=== PATIENT | male | born 1945 | race African-American/Black ===

== ENCOUNTER 2025-09-01 17:37 | Inpatient (IN) | payer OTHER, MEDICAID ==
[~2025-09-01] VITALS: Ht 177.8 cm; Wt 89.5 kg
--- NOTE | 2025-09-01 19:05 | ED.PDOC ---
History of Present Illness(SKN HPI Comments 80 year old male presents to the ED with a chief complaint of wound check. Patient states he went to see PCP, Dr. Marrero, today (09/01/25), was advised to come to ED for wound check, possible infection due to odor. states patient has been experiencing wound for the past 2 months as well as shortness of breath. Patient is not compliant with medication, BP upon ED arrival was 188/113. Denies chest pain, dizziness, numbness/tingling, fever, chills, nausea, vomiting, diarrhea, blurred vision, shortness of breath. No other symptoms or modifying factors present at this time. Chief Complaint: Puncture Wound Time Seen by MD: 18:35 History of Present Illness: Medications, Allergies Allergies: Coded Allergies: NO KNOWN ALLERGIES (Unverified , 09/01/25) Information Source: Patient, Spouse Mode of Arrival: Wheelchair Severity: Moderate Timing: Months Duration: Since onset Prehospital treatment: None Location: Leg Mechanism: Preceding Wound Object: None Condition of Object: None Wound Type: Other Tetanus: UTD History of: Diabetes Associated Signs and Symptoms: Pus Vital Signs Vital Signs Date Time Temp Pulse Resp B/P (MAP) Pulse Ox O2 Delivery O2 Flow Rate FiO2 09/01/25 17:40 83 20 188/113 98 Physical Exam PHYSICAL EXAM: General: Awake, alert and oriented. No acute distress. Skin: Skin in warm, dry and intact. Appropriate color for ethnicity. HEENT: The head is normocephalic and atraumatic. Conjunctivae are clear without exudates or hemorrhage. Sclera is non-icteric. EOM are intact. No signs of nystagmus. Eyelids are normal in appearance without swelling or lesions. Oral mucosa is pink and moist Neck: The neck is supple with normal range of motion. No JVD. Cardiac: Heart rate and rhythm are normal. No murmurs, gallops, or rubs are auscultated. Respiratory: No signs of respiratory distress. Lung sounds are clear in all lobes bilaterally without rales, rhonchi, or wheezes. Extremities: Lower extremity macerated was open, draining wounds, tender to palpation. Palpable right DP pulse. Neurological: The patient is awake, alert and oriented to person, place, and time with normal speech. Speech is clear. There is no facial asymmetry. Review of Systems: REVIEW OF SYSTEMS: General: No fever, no chills, or fatigue HEENT: No sore throat, no earache, no congestion, no neck pain. Cardiac: No chest pain. No palpitations. Lungs: + shortness of breath, no cough. GI: No nausea, no vomiting, no diarrhea, no constipation, no abdominal pain : No dysuria, frequency, or urgency. No hematuria. Musculoskeletal: No joint pain , no joint swelling, + extremity edema. Skin: No rash, no itching. Neuro: No headache, no dizziness, no weakness Past Medical History PAST MEDICAL HISTORY: DM, HTN Surgical History: CABG Family History Family History: Reviewed,noncontributory to illness, No family hx of Cancer, No family hx of DM, No family hx of Heart abiel, No family hx of HTN, No family hx ofKidney abiel, No family hx of Liver abiel, No family hx of Lung abiel, No family hx of Stroke Social History Smoker: Non-Smoker Alcohol: Denies ETOH Use Drugs: Denies Drug Use Lives In: Home Was a procedure done? Was a procedure done?: No X-Ray, Labs, Meds, VS Vital Signs Date Time Temp Pulse Resp B/P (MAP) Pulse Ox O2 Delivery O2 Flow Rate FiO2 09/01/25 17:40 83 20 188/113 98 Lab Test 09/01/25 19:20 Range/Units White Blood Count 5.7 4.4-10.8 10^3/uL Red Blood Count 4.60 4.5-5.90 10^6/uL Hemoglobin 14.7 13.5-17.5 g/dL Hematocrit 44.8 41.0-53.0 % Mean Corpuscular Volume 97.3 80.0-100.0 fL Mean Corpuscular Hemoglobin 31.9 28.0-32.0 pg Mean Corpuscular Hemoglobin Concent 32.8 32.0-36.0 g/dL Red Cell Distribution Width 18.7 H 11.8-14.3 % Platelet Count 197 140-450 10^3/uL Mean Platelet Volume 9.1 6.9-10.8 fL Neutrophils (%) (Auto) 73.1 37.0-80.0 % Lymphocytes (%) (Auto) 18.1 10.0-50.0 % Monocytes (%) (Auto) 7.7 0.0-12.0 % Eosinophils (%) (Auto) 0.0 0.0-7.0 % Basophils (%) (Auto) 1.1 0.0-2.0 % Neutrophils # (Auto) 4.2 1.6-8.6 10 ^3/uL Lymphocytes # (Auto) 1.0 0.4-5.4 10 ^3/uL Monocytes # (Auto) 0.4 0-1.3 10 ^3/uL Eosinophils # (Auto) 0 0-0.8 10 ^3/uL Basophils # (Auto) 0.1 0-0.2 10 ^3/uL Nucleated Red Blood Cells 0.1 % Sodium Level 146 H 136-145 mmol/L Potassium Level 3.4 L 3.5-5.1 mmol/L Chloride Level 103 98-107 mmol/L Carbon Dioxide Level 29 20-31 mmol/L Anion Gap 14 5-15 Blood Urea Nitrogen 28 H 9-23 mg/dL Creatinine 2.06 H 0.700-1.30 mg/dL Glomerular Filtration Rate Calc 32 >90 mL/min BUN/Creatinine Ratio 13.6 10.0-20.0 Serum Glucose 96 74-106 mg/dL Lactic Acid Level 1.4 0.4-2.0 mmol/L Calcium Level 8.9 8.7-10.4 mg/dL Troponin I High Sensitivity 46 </=54 ng/L B-Type Natriuretic Peptide 4935.18 0-100 pg/mL Time of 1ST Reevaluation: 19:05 Reevaluation 1ST: Unchanged Patient Education/Counseling: Diagnosis, Treatment, Need For Follow Up Family Education/Counseling: Diagnosis, Treatment, Need For Follow Up SEPSIS Sepsis Screen Date sepsis recognized/suspect: Sep 01, 2025 Time Sepsis recognized/suspect: 1740 Recent Procedure: No On Antibiotic Therapy: No Respiratory Rate >20: No Heart Rate >90: No Temp<36 C (96.8 F) or >38.3 C: No SBP <90 or MAP <65 mmHG: No New Acute Mental Status Change: No Is the patient on CPAP, BIPAP,: No Physician Orders Bilat Low Ext Art Duplex (09/01/25 18:54) Lower Extremity Non Joint Righ (09/01/25 18:54) Wound Culture W/ Gs (09/01/25 18:54) Blood Culture (09/01/25 18:54) Chest Xray 1 View (09/01/25 18:54) Sodium Chloride 0.9% (09/01/25 20:15) Ceftriaxone 1gm/50ml (Rocephin) (09/01/25 20:15) Vancomycin 1gm/250ml Kit (09/01/25 20:15) Vital Signs Date Time Temp Pulse Resp B/P (MAP) Pulse Ox O2 Delivery O2 Flow Rate FiO2 09/01/25 17:40 83 20 188/113 98 Laboratory Tests Test 09/01/25 19:20 Lactic Acid Level 1.4 mmol/L (0.4-2.0) White Blood Count 5.7 10^3/uL (4.4-10.8) Departure 1 Departure Time of Disposition: 20:21 Impression: Primary Impression: Cellulitis Additional Impressions: MARILY (acute kidney injury) Uncontrolled hypertension Disposition: ADMITTED INPATIENT Condition: Stable Comments MDM: 80-year-old male with right lower extremity cellulitis and MARILY Antibiotics and IV fluids initiated in the ED Patient admitted to hospitalist service for further treatment, evaluation and monitoring. Extensive evaluation was performed in attempt to identify or rule out: (See differential diagnosis section) The following tests were ordered, and results were reviewed by me and discussed with patient: (See diagnostic results section) The following test were independently interpreted by me: N/A I reviewed and agreed with the following test results read by other providers: N/A I reviewed the following notes from the pt's past medical encounters: N/A Additional information was gathered from interviewing the following independent historians: Patient's family member at bedside Discussion of management or test interpretation with external physician/other qualified health body care manager: N/A Addressed [ ]one or more chronic illnesses with severe exacerbation, progression, or side effects of treatment: Diabetes mellitus, CHF Decision regarding hospitalization or escalation of hospital level of care: Risk and benefits of admission for further treatment of patient's condition was considered. Due to patient's current clinical condition, high risk of decline and poor outcome if discharged and need for further inpatient management and monitoring, patient will be admitted to the hospital. Critical Care Note Critical Care Time?: No Stability Stability form required: No Heart Score Heart Score: Heart Score Response (Comments) Value History N/A 0 EKG N/A 0 Age N/A 0 Risk Factors N/A 0 Troponin N/A 0 Total 0 I personally scribed for DEMETRIUS DYER MD ([email or web address]) on 09/01/25 at 19:05. Electronically submitted by Debbie Shoemaker ([email or web address]). DEMETRIUS DYER MD Sep 01, 2025 19:05
[2025-09-01 19:44] LABS: Hematocrit 44.8 % (41.0-53.0); Hemoglobin 14.7 g/dL (13.5-17.5); Mean Corpuscular Hemoglobin 31.9 pg (28.0-32.0); Mean Corpuscular Volume 97.3 fL (80.0-100.0); Nucleated Red Blood Cells % 0.1 %
[2025-09-01 19:56] LABS: Chloride 103 mmol/L (98-107)
[2025-09-01 19:57] LABS: Anion Gap 14 (5-15); Calcium 8.9 mg/dL (8.7-10.4); Carbon Dioxide 29 mmol/L (20-31)
--- NOTE | 2025-09-01 19:59 | DVH ---
CHEST RADIOGRAPH Indication: sob Technique: Single frontal view of the chest was obtained Comparison: None FINDINGS: Lines and Tubes: None Lungs: No focal consolidation. Pleura: No effusion. No pneumothorax. Cardiomediastinal contours: Unremarkable Bones: No acute osseous abnormality. IMPRESSION: 1. No acute cardiopulmonary disease.
[2025-09-01 20:02] LABS: BUN/Creatinine Ratio 13.6 (10.0-20.0); Glucose 96 mg/dL (74-106)
[2025-09-01 20:03] LABS: Blood Urea Nitrogen 28 mg/dL (9-23); Potassium 3.4 mmol/L (3.5-5.1); Sodium 146 mmol/L (136-145)
[2025-09-01] MEDS ORDERED: SODIUM CHLORIDE 0.9% 1,000 ML IV ONE (20:15)
--- NOTE | 2025-09-01 20:17 | DVH ---
EXAM: CT LOWER EXTREMITY NON JOINT RIGH INDICATION: RLE cellulitis wheeping edema TECHNIQUE: Axial images of right lower extremity have been obtained along with coronal and sagittal r eformatted images. All CT scans at this facility use dose modulation, iterative reconstruction, and/o r weight based dosing when appropriate to reduce radiation dose to as low as reasonably achievable. COMPARISON: None FINDINGS: BONES: No CT evidence of an acute fracture or aggressive osseous lesion. no abnormal periosteal react ion osseous erosion or areas of sclerosis MUSCLES: No abnormal attenuation. JOINT SPACES: No joint effusion. TENDONS/LIGAMENTS: Intact. OTHER: Extensive surrounding skin thickening with subcutaneous adipose tissue edema IMPRESSION: 1. No CT evidence of an acute fracture or aggressive osseous lesion. 2. No abnormal periosteal reaction, osseous erosion or areas of sclerosis. 3. Extensive surrounding skin thickening with subcutaneous adipose tissue edema likely compatible wit h cellulitis/fasciitis. 4. No drainable fluid collection
--- NOTE | 2025-09-01 21:01 | DVH ---
EXAM: US BILAT LOW EXT ART DUPLEX INDICATION: Cellulitis TECHNIQUE: Grayscale and color Doppler sonographic imaging evaluation of the right and left lower ext remity arterial system was performed COMPARISON: None available at the time of dictation. FINDINGS: RIGHT LOWER EXTREMITY ARTERIES: Common femoral artery: 13.1 cm/s, triphasic Deep femoral artery: 69 cm/s, triphasic Proximal femoral artery: 91 cm/s, triphasic Mid femoral artery: 84 cm/s, triphasic Distal femoral artery: 86 cm/s, triphasic Popliteal artery: 64 cm/s, biphasic Posterior tibial artery: Nonvisualized Dorsalis pedis artery: 16 cm/s, biphasic LEFT LOWER EXTREMITY ARTERIES: Common femoral artery: 65 cm/s, monophasic Deep femoral artery: 76 cm/s, monophasic Proximal femoral artery: 21 cm/s, monophasic Mid femoral artery: 70 cm/s, monophasic Distal femoral artery: 20 cm/s, monophasic Popliteal artery: 17 cm/s, monophasic Posterior tibial artery: Not well visualized Dorsalis pedis artery: Not well visualized REFERENCE VALUES: Normal velocity ranges (in cm/sec) are as follows: UPHOLSTERY HANDLER 95-140, SFA 75-105, popliteal 54-84, tibial 41-81 cm/sec. Stenosis categories: 1.5-2.0 x normal velocity = 30-49%, 2.0-4.0 x normal velocity = 50-75%, >4.0 x normal velocity = >75%. IMPRESSION: 1. No sonographic evidence of a lower extremity arterial occlusion. Velocities as above. 2. Plaque seen through bilateral lower extremities. 3. Decreased left common femoral artery velocity. 4. Diffusely decreased monophasic waveform of the left lower extremity suggestive of proximal stenosi s.
[2025-09-01] MEDS: VANCOMYCIN 1GM/250ML KIT 250 ML IV ONE (22:51)
[2025-09-02] VITALS (7 sets, daily range): BP systolic 105–176; BP diastolic 62–94; PULSE 66–84; RESP 16–20; TEMP 97.9–98.7; O2SAT 94–98
[2025-09-02] MEDS ORDERED: DEXTROSE (50%) 50ML SYRG IV PRN (02:00)
[2025-09-02] MEDS ORDERED: VANCOMYCIN PER PHARMACY 0 MG IV SCH (02:00)
--- NOTE | 2025-09-02 02:23 | DVHHPRES ---
History of Present Illness Resident Creating Document: RAYMOND CABRERA History of Present Illness Patient is a 80-year-old male with past medical history of type 2 diabetes mellitus and hypertension, presented to [facility] ED for evaluation of a wound, per recommendation from his PCP, Dr. Marrero, who was seen earlier today. The PCP was concerned about possible infection due to odor from the wound. Patient has been experiencing swelling and pain in the right lower extremity for the past 2 months, which has worsened over the last few days, now with drainage and bleeding from the wound site. Patient is reportedly noncompliant with prescribed medications. Upon arrival to the ED, blood pressure was elevated at 188/113 mmHg. Initial labs shows sodium 146, potassium 3.4, BUN 28 and creatinine 2.06. Lower extremity CT shows extensive surrounding skin thickening with subcutaneous adipose tissue edema likely compatible with cellulitis/fasciitis. The patient was started on IV antibiotics. Patient is admitted for further evaluation and management. Cardiovascular: HTN Endocrine: Diabetes Past Surgical History: CABG Smoke: Quit ALCOHOL: none Drugs: None Lives: with Family Review of Systems Review of Systems Eyes: No Pain, No Vision change, No Conjunctivae inflammation, No Eyelid inflammation, No Other, No Redness ENT: No Ear pain, No Ear discharge, No Nose pain, No Nose discharge, No Nose congestion, No Mouth pain, No Mouth swelling, No Throat pain, No Throat swelling, No Other Cardiovascular: No Chest Pain, No Palpitations, No Orthopnea, No Paroxysmal No Dyspnea, No Edema, No Lt Headedness, No Other Respiratory: No Cough, No Dry, Shortness of breath, No SOB with exertion, No Wheezing, No Hemoptysis, No Pleuritic Pain, No Sputum, No Other Gastrointestinal: No Nausea, No Vomiting, No Abdominal Pain, No Diarrhea, No Constipation, No Melena, No Hematochezia, No Other Genitourinary: No Dysuria, No Frequency, No Incontinence, No Hematuria, No Retention, No Other Musculoskeletal: No other, No neck pain, No shoulder pain, No arm pain, No back pain, No hand pain, No leg pain, No foot pain Skin: No Rash, No Lesions, No Jaundice, No Bruising, No Other Allergies: Coded Allergies: NO KNOWN ALLERGIES (Unverified , 09/01/25) Medications Current Medications Medications Dose Ordered Sig/Reza Route Start Time Stop Time Status Last Admin Dose Admin Sodium Chloride 10 ml Q8HR IV 09/02/25 06:00 Vancomycin HCl 0 ml @ 0 mls/hr UD IV 09/02/25 02:00 UNV Warfarin Sodium RX PROTOCOL PER PHARMACY PO 09/02/25 02:00 UNV Ceftriaxone Sodium 50 ml @ 100 mls/hr DAILY@09 IV 09/02/25 09:00 Diagnostic Test (Pha) 1 strip ACHS 09/02/25 07:00 Insulin Human Regular ACHS SC 09/02/25 07:00 Dextrose 50 ml UD PRN IV 09/02/25 02:00 Carvedilol 6.25 mg Q12HR PO 09/02/25 10:00 Nifedipine 60 mg DAILY PO 09/03/25 10:00 Exam Vital Signs Vital Signs Date Time Temp Pulse Resp B/P (MAP) Pulse Ox O2 Delivery O2 Flow Rate FiO2 09/01/25 23:50 97.8 75 18 171/94 (119) 95 97.8 Exam General Appearance: Cooperative. Well developed. Well nourished. NAD Head Exam: Normal inspection Neck Exam: Normal inspection. Non-tender. Normal alignment Pulmonary/Respiratory: Chest non-tender. Clear bilateral breath sounds, no crackles, no wheezing. Cardiovascular/Chest: Regular rate and rhythm. No murmurs. No JVD. Peripheral Pulses: 2+ Radial (R). 2+ Radial (L). 2+ Pedal (R). 2+ Pedal (L) Abdominal Exam: Abdominal distension. Normal bowel sounds. Soft. normal abdomen, no visible veins, Nontender. No hepatospenomegaly. No masses Ankle Exam: Negative ankle edema Lower extremities: Lower extremity macerated was open, draining wounds, tender to palpation. Palpable right DP pulse. Neuro/Mental Status: A&O x4. Coherent. Thoughts/Psych: Normal thought pattern. Appropriate mood and affect. Good judgement and insight Skin Exam: Normal inspection. Normal color. Warm. Dry Labs/Xrays Labs Test 09/01/25 19:20 Range/Units White Blood Count 5.7 4.4-10.8 10^3/uL Red Blood Count 4.60 4.5-5.90 10^6/uL Hemoglobin 14.7 13.5-17.5 g/dL Hematocrit 44.8 41.0-53.0 % Mean Corpuscular Volume 97.3 80.0-100.0 fL Mean Corpuscular Hemoglobin 31.9 28.0-32.0 pg Mean Corpuscular Hemoglobin Concent 32.8 32.0-36.0 g/dL Red Cell Distribution Width 18.7 H 11.8-14.3 % Platelet Count 197 140-450 10^3/uL Mean Platelet Volume 9.1 6.9-10.8 fL Neutrophils (%) (Auto) 73.1 37.0-80.0 % Lymphocytes (%) (Auto) 18.1 10.0-50.0 % Monocytes (%) (Auto) 7.7 0.0-12.0 % Eosinophils (%) (Auto) 0.0 0.0-7.0 % Basophils (%) (Auto) 1.1 0.0-2.0 % Neutrophils # (Auto) 4.2 1.6-8.6 10 ^3/uL Lymphocytes # (Auto) 1.0 0.4-5.4 10 ^3/uL Monocytes # (Auto) 0.4 0-1.3 10 ^3/uL Eosinophils # (Auto) 0 0-0.8 10 ^3/uL Basophils # (Auto) 0.1 0-0.2 10 ^3/uL Nucleated Red Blood Cells 0.1 % Sodium Level 146 H 136-145 mmol/L Potassium Level 3.4 L 3.5-5.1 mmol/L Chloride Level 103 98-107 mmol/L Carbon Dioxide Level 29 20-31 mmol/L Anion Gap 14 5-15 Blood Urea Nitrogen 28 H 9-23 mg/dL Creatinine 2.06 H 0.700-1.30 mg/dL Glomerular Filtration Rate Calc 32 >90 mL/min BUN/Creatinine Ratio 13.6 10.0-20.0 Serum Glucose 96 74-106 mg/dL Lactic Acid Level 1.4 0.4-2.0 mmol/L Calcium Level 8.9 8.7-10.4 mg/dL Troponin I High Sensitivity 46 </=54 ng/L B-Type Natriuretic Peptide 4935.18 0-100 pg/mL SEPSIS Sepsis Screen Date sepsis recognized/suspect: Sep 01, 2025 Time Sepsis recognized/suspect: 1740 Recent Procedure: No On Antibiotic Therapy: No Respiratory Rate >20: No Heart Rate >90: No Temp<36 C (96.8 F) or >38.3 C: No SBP <90 or MAP <65 mmHG: No New Acute Mental Status Change: No Is the patient on CPAP, BIPAP,: No Physician Orders Bilat Low Ext Art Duplex (09/01/25 18:54) Lower Extremity Non Joint Righ (09/01/25 18:54) Wound Culture W/ Gs (09/01/25 18:54) Blood Culture (09/01/25 18:54) Chest Xray 1 View (09/01/25 18:54) Sod Chl 0.45% (Sodium Chloride 0.45% Via (09/01/25 21:30) Admit (09/02/25 01:48) Allergies (09/02/25 01:48) Code Status (09/02/25 01:48) Sodium Chloride Lock (Saline Lock Ns) (09/02/25 06:00) Complete Blood Count (09/02/25 04:00) Comprehensive Metabolic Panel (09/02/25 04:00) Cardiac Diet-2gna,Lofat,Lochol (09/02/25 Breakfast) Echo 2d Mode Cardiac Dop (09/02/25 01:48) Condition: Serious (09/02/25 01:48) Stat Ekg For Chest Pain (09/02/25 01:48) Notify Md Of Changes From Base (09/02/25 01:48) Extractor Puller For 24 Hours (09/02/25 01:48) Emergency Dysrhythmia Protocol (09/02/25 01:48) Rhythm Strips Once Every Shift (09/02/25 01:48) * Wound Consult (09/02/25 ) Urinalysis (09/02/25 01:48) Drug Screen (09/02/25 01:48) Lactic Acid W/ Reflex Order (09/02/25 01:48) Vancomycin Per Pharmacy (09/02/25 02:00) Erythrocyte Sedimentation Rate (09/02/25 01:48) C-Reactive Protein (09/02/25 01:48) Warfarin Per Rx Protocol (Coumadin Per R (09/02/25 02:00) Hepatic Panel (09/02/25 01:48) Kidney (09/02/25 01:48) Urine Sodium (09/02/25 01:48) Urine Creatinine (09/02/25 01:48) Osmolality Urine (09/02/25 01:48) Urine Protein/Creatinine Ratio (09/02/25 ) Creatine Kinase (09/02/25 01:48) Ceftriaxone 1gm/50ml (Rocephin) (09/02/25 09:00) Consult Vascular/Endovascular (09/02/25 01:48) Glucose Blood (Accu-Chek Comfort Curve T (09/02/25 07:00) Insulin R (Human) (Insulin R) (09/02/25 07:00) Dextrose 50% Syringe (09/02/25 02:00) Carvedilol Tablet (Coreg Tablet) (09/02/25 10:00) Nifedipine Er (Procardia Xl (Time-Releas (09/02/25 02:30) Nifedipine Er (Procardia Xl (Time-Releas (09/03/25 10:00) Carvedilol Tablet (Coreg Tablet) (09/02/25 02:30) Vital Signs Date Time Temp Pulse Resp B/P (MAP) Pulse Ox O2 Delivery O2 Flow Rate FiO2 09/01/25 23:50 97.8 75 18 171/94 (119) 95 97.8 Laboratory Tests Test 09/01/25 19:20 Lactic Acid Level 1.4 mmol/L (0.4-2.0) White Blood Count 5.7 10^3/uL (4.4-10.8) Medications Medications Dose Ordered Sig/Reza Route Start Time Stop Time Status Last Admin Dose Admin Ceftriaxone Sodium 50 ml @ 100 mls/hr ONCE ONCE IV 09/01/25 20:15 09/01/25 21:00 DC 09/01/25 22:52 100 MLS/HR Vancomycin HCl 250 ml @ 250 mls/hr ONCE ONCE IV 09/01/25 20:15 09/01/25 21:14 DC 09/01/25 22:51 250 MLS/HR Assessment/Plan Assessment/Plan Right lower extremity cellulitis Lower extremity CT: Extensive surrounding skin thickening with subcutaneous adipose tissue edema likely compatible with cellulitis/fasciitis. Duplex scan lower extremity artery: Diffusely decreased monophasic waveform of the left lower extremity suggestive of proximal stenosis. Plaque seen through bilateral lower extremities. Decreased left common femoral artery velocity. 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 Gill Plan discussed with: Patient, Spouse My Orders Orders - RAYMOND CABRERA RESIDENT Procedure Category Date Status Time Admit ADMIT 09/02/25 Transmitted 01:48 Allergies ERLIN 09/02/25 In Process 01:48 Code Status CODE 09/02/25 Transmitted 01:48 Sodium Chloride Lock PHA 09/02/25 In Process (Saline Lock Ns) 06:00 Complete Blood Count LAB 09/02/25 Logged 04:00 Comprehensive LAB 09/02/25 Logged Metabolic Panel 04:00 Cardiac DIET 09/02/25 Transmitted Diet-2gna,Lofat,Lochol Breakfast Echo 2d Mode Cardiac US 09/02/25 Logged DOP 01:48 Condition: Serious ERLIN 09/02/25 In Process 01:48 Stat Ekg For Chest [facility] 09/02/25 In Process Pain 01:48 Notify Md Of Changes [facility] 09/02/25 In Process From Base 01:48 Extractor Puller For [facility] 09/02/25 In Process 24 Hours 01:48 Emergency Dysrhythmia [facility] 09/02/25 In Process Protocol 01:48 Rhythm Strips Once [facility] 09/02/25 In Process Every Shift 01:48 * Wound Consult CONS 09/02/25 Transmitted Urinalysis LAB 09/02/25 Logged 01:48 Drug Screen LAB 09/02/25 Logged 01:48 Lactic Acid W/ Reflex LAB 09/02/25 Logged Order 01:48 Vancomycin Per PHA 09/02/25 Logged Pharmacy 02:00 Erythrocyte LAB 09/02/25 Logged Sedimentation Rate 01:48 C-Reactive Protein LAB 09/02/25 Logged 01:48 Warfarin Per Rx [facility] 09/02/25 Pending Protocol (Coumadin 02:00 Hepatic Panel LAB 09/02/25 Logged 01:48 Kidney US 09/02/25 Logged 01:48 Urine Sodium LAB 09/02/25 Logged 01:48 Urine Creatinine LAB 09/02/25 Logged 01:48 Osmolality Urine LAB 09/02/25 Logged 01:48 Urine LAB 09/02/25 Logged Protein/Creatinine Creatine Kinase LAB 09/02/25 Logged 01:48 Ceftriaxone 1gm/50ml PHA 09/02/25 In Process (Rocephin) 09:00 Consult CONS 09/02/25 Transmitted Vascular/Endovascular 01:48 Glucose Blood PHA 09/02/25 In Process (Accu-Chek Comfort 07:00 Insulin R (Human) PHA 09/02/25 In Process (Insulin R) 07:00 Dextrose 50% Syringe PHA 09/02/25 In Process 02:00 Carvedilol Tablet PHA 09/02/25 In Process (Coreg Tablet) 10:00 Nifedipine Er PHA 09/02/25 In Process (Procardia Xl 02:30 Nifedipine Er PHA 09/03/25 In Process (Procardia Xl 10:00 Carvedilol Tablet PHA 09/02/25 In Process (Coreg Tablet) 02:30 Date of Service: Sep 02, 2025 Billing Provider: DOMINICK GILL MD Common Visit Codes: 60412-[id number] INP/OBS CARE (HIGH) Secondary Visit Codes: [id number] CARE PLAN 30 MINUTES RAYMOND CABRERA RESIDENT Sep 02, 2025 02:23 DOMINICK GILL MD Sep 02, 2025 08:43
[2025-09-02 04:09] LABS: Alanine Aminotransferase 17.0 U/L (7-40); Albumin 4.2 g/dL (3.2-4.8); Alkaline Phosphatase 101.0 U/L (46-116); Creatine Kinase IFCC 130.0 U/L (46-171); Total Protein 8.1 g/dL (5.7-8.2)
[2025-09-02 04:10] LABS: Bilirubin, Direct 1.1 mg/dL (<0.3); Bilirubin, Total 1.7 mg/dL (0.2-1.0)
[2025-09-02] MEDS: POTASSIUM EFFERVESENT TAB 25 MEQ PO ONE (04:22)
[2025-09-02] MEDS: CARVEDILOL 3.125 MG TAB PO ONE (04:24)
[2025-09-02 05:04] LABS: Hematocrit 45.2 % (41.0-53.0); Hemoglobin 15.0 g/dL (13.5-17.5); Mean Corpuscular Hemoglobin 32.3 pg (28.0-32.0); Mean Corpuscular Volume 97.5 fL (80.0-100.0); Nucleated Red Blood Cells % 0.1 %
[2025-09-02 05:18] LABS: Alanine Aminotransferase 19 U/L (7-40); Albumin 4.1 g/dL (3.2-4.8); Alkaline Phosphatase 107 U/L (46-116); Anion Gap 14 (5-15); BUN/Creatinine Ratio 15.8 (10.0-20.0); Calcium 9.0 mg/dL (8.7-10.4); Carbon Dioxide 28 mmol/L (20-31); Chloride 102 mmol/L (98-107); Potassium 3.6 mmol/L (3.5-5.1); Sodium 144 mmol/L (136-145); Total Protein 7.9 g/dL (5.7-8.2)
[2025-09-02 05:26] LABS: Bilirubin, Total 1.7 mg/dL (0.2-1.0); Blood Urea Nitrogen 30 mg/dL (9-23); Glucose 140 mg/dL (74-106)
[2025-09-02] MEDS: InsuLIN REG 1unit/0.01ml Soln (100units/ml) SC SCH (06:44)
[2025-09-02] MEDS: SODIUM CHLOR 0.9% PF (SALINE LOCK) 10ML VIAL/SYR IV SCH (06:44)
[2025-09-02] MEDS: VANCOMYCIN 1GM/250ML KIT 250 ML IV ONE (06:50)
[2025-09-02] MEDS: SOD CHL 0.45% 1,000 ML IV ONE (06:52)
[2025-09-02] MEDS: ACCU-CHEK COMFORT CURVE STRIP VI SCH (07:00)
[2025-09-02] MEDS: FUROSEMIDE 40 MG/4 ML VIAL IV ONE (07:50)
--- NOTE | 2025-09-02 08:11 | DVH ---
INDICATION: MARILY. TECHNIQUE: Multiple real-time sonographic images of the kidneys and bladder were obtained. COMPARISON: None FINDINGS: The right kidney measures 8.8 cm in length, which is normal in size. There is normal echoge nicity of the right kidney. No hydronephrosis. There is a 1.2 cm echogenic mass in the right kidney. There is no shadowing. Increased echogenicity of the renal cortex. The left kidney measures 8.7 cm in length, which is normal in size. There is normal echogenicity of t he left kidney. No hydronephrosis. Increased echogenicity of the renal cortex. No large intraluminal masses are seen in the bladder. Prior to voiding the bladder volume measures vo lume 180.2 cc. IMPRESSION: 1. Bilateral medical renal disease. 2. 1.2 cm echogenic mass in the right kidney. This could represent a nonobstructing stone versus ang iomyolipoma.
[2025-09-02] MEDS ORDERED: WARF4TAB70 PO (08:17)
[2025-09-02] MEDS ORDERED: CARV6.2551 PO (08:17)
[2025-09-02] MEDS ORDERED: METF-372 PO (08:17)
[2025-09-02 09:37] LABS: Urine Protein, UAD Negative (Negative)
[2025-09-02] MEDS ORDERED: VANCOMYCIN 1GM/250ML KIT 250 ML IV SCH (10:10)
[2025-09-02] MEDS: CARVEDILOL 3.125 MG TAB PO SCH (10:55)
[2025-09-02 10:56] LABS: INR 2.09 (0.9-1.15); Partial Thromboplastin Time 35.8 SEC (24.5-34.5); Prothrombin Time 20.6 sec (9.3-11.8)
--- NOTE | 2025-09-02 12:49 | DVHPNRES ---
Progress Note Date Seen: Sep 02, 2025 Resident Creating Document: PENELOPE PAULINO RESIDENT Has the PT tested + for MRSA If YES, has PT been informed?: No Medical Necessity Reason Pt with a Central, PICC or Fol: No Subjective Review of Systems Timur Briseno is a 80-year-old male, with past medical history of CAD, type 2 diabetes mellitus and hypertension, presented to the ED with chief complain of 2 months of bilateral leg edema, warmth, erythema and pain, the pain is 6/10, throbbing irradiated diffusely in the legs up to the knees. On further questioning the patient reports that his takes care of his daily medications and he has not being compliant. The edema and erythema worsen, specially in the right leg, this prompted his visit to His PCP, Dr. Nobles, who recommends to visit the ED due to of foul odor and multiples ulcers around both legs. In the ED, initial work up showed: sodiym 146, potassium 3.4, BUN [address] of Lower extremity showed extensive surrounding skin thickening with subcutaneous adipose tissue edema likely compatible with cellulitis/fascitis. The patient was started on IV antibiotics. Patient was admitted for further evaluation and management. Past Surgical History: CABG (patient on warfarin due to [facility].) Smoke: quit >5 years ago. No alcohol or drugs. Lives with . Today, the patient was evaluated and examined at the bedside, patient reports feeling leg pain 4/10, more in the right leg. VS, labs and chart was reviewed. The patient is receiving Vancomycin 1gr IV and ceftriaxone 1gr IV. Bilateral lower extremity doppler showed: No sonographic evidence of a lower extremity arterial occlusion. Velocities as above. Plaque seen through bilateral lower extremities. Decreased left common femoral artery velocity. Diffusely decreased monophasic waveform of the left lower extremity suggestive of proximal stenosis. Consult with vascular surgery was placed. US abdomen showed: 1.2 cm echogenic mass in the right kidney. This could represent a nonobstructing stone versus angiomyolipoma. Today, I spoke with the patient's and update in regards he status. We will continue monitoring this patient. Review of Systems Eyes: No Pain, No Vision change, No Conjunctivae inflammation, No Eyelid inflammation, No Other, No Redness ENT: No Ear pain, No Ear discharge, No Nose pain, No Nose discharge, No Nose congestion, No Mouth pain, No Mouth swelling, No Throat pain, No Throat swelling, No Other Cardiovascular: No Chest Pain, No Palpitations, No Orthopnea, No Paroxysmal No Dyspnea, No Edema, No Lt Headedness, No Other Respiratory: No Cough, No Dry, No SOB with exertion, No Wheezing, No Hemoptysis, No Pleuritic Pain, No Sputum, No Other Gastrointestinal: No Nausea, No Vomiting, No Abdominal Pain, No Diarrhea, No Constipation, No Melena, No Hematochezia, No Other Genitourinary: No Dysuria, No Frequency, No Incontinence, No Hematuria, No Retention, No Other Musculoskeletal: bilateral leg pain, redness and swelling. More in the right. Skin: No R the patient reports Coded Allergies: No known allergies. Objective vital signs Vital Sign Date Time Temp Pulse Resp B/P (MAP) Pulse Ox O2 Delivery O2 Flow Rate FiO2 09/02/25 10:55 76 128/77 09/02/25 07:53 98.5 20 96 98.5 09/02/25 07:53 Room Air* 0 21 medications Current Medications Medications Dose Ordered Sig/Reza Route Start Time Stop Time Status Last Admin Dose Admin Sodium Chloride 10 ml Q8HR IV 09/02/25 06:00 09/02/25 06:44 10 ML Vancomycin HCl 0 ml @ 0 mls/hr UD IV 09/02/25 02:00 Warfarin Sodium RX PROTOCOL PER PHARMACY PO 09/02/25 02:00 Ceftriaxone Sodium 50 ml @ 100 mls/hr DAILY@09 IV 09/02/25 09:00 09/02/25 08:25 100 MLS/HR Diagnostic Test (Pha) 1 strip ACHS 09/02/25 07:00 09/02/25 10:49 1 STRIP Insulin Human Regular ACHS SC 09/02/25 07:00 09/02/25 10:55 3 UNITS Dextrose 50 ml UD PRN IV 09/02/25 02:00 Carvedilol 6.25 mg Q12HR PO 09/02/25 10:00 09/02/25 10:55 6.25 MG Nifedipine 60 mg DAILY PO 09/03/25 10:00 Vancomycin HCl 250 ml @ 250 mls/hr DAILY IV 09/02/25 10:10 UNV Examination General Appearance: Alert, oriented x3. Cooperative. Head Exam: Normal inspection Neck Exam: Normal inspection. Non-tender. Normal alignment Pulmonary/Respiratory: Chest non-tender. Clear bilateral breath sounds, no crackles, no wheezing. Cardiovascular/Chest: Regular rate and rhythm. No murmurs. No JVD. Peripheral Pulses: Pedal pulses are decreased in bilateral legs 2/5. Capillary refill 3 sec. Abdominal Exam: Abdomen is protuberant. Normal bowel sounds. Soft. Non tender. Lower extremities: Cold to touch. Right and left lower extremity skin has erythema and multiple open ulcers draining yellowish fluid. foul smell. Normal ROM. Tender to palpation. Right leg is more tender and warm compared with the left leg. Neuro/Mental Status: A&O x3. laboratory and microbiology Laboratory Tests 09/02/25 02:34 Test 09/02/25 02:34 Range/Units Serum Glucose 140 H 74-106 mg/dL Problem List/Assessment/Plan Problem List/Assessment/Plan #Acute Right lower extremity cellulitis #Severe peripheral artery disease. Lower extremity CT: Extensive surrounding skin thickening with subcutaneous adipose tissue edema likely compatible with cellulitis/fascitis. Duplex scan lower extremity artery: Diffusely decreased monophasic waveform of the left lower extremity suggestive of proximal stenosis. Plaque seen through bilateral lower extremities. Decreased left common femoral artery velocity. IV antibiotics: Vancomycin 1gr and ceftriaxone 1 gr. daily Blood culture, urine culture Wound culture Wound consult Vascular surgery consult Hypertensive urgency Monitor BP Echocardiogram reading is pending. 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 was called and report the status of the patient. Code Status: Full code PCP: Dr. Morales. Cardiology Dr. Marrero in [place] Case discussed with Dr. Gill Plan discussed with: Patient, Spouse My Orders My Orders Orders - PENELOPE PAULINO RESIDENT Procedure Category Date Status Time Lipid Panel LAB 09/02/25 In Process 07:02 Complete Blood Count LAB 09/03/25 Verified 04:00 Comprehensive LAB 09/03/25 Verified Metabolic Panel 04:00 Date of Service: Sep 02, 2025 Billing Provider: DOMINICK GILL MD Common Visit Codes: [id number] INP/OBS CARE(HIGH) PENELOPE PAULINO RESIDENT Sep 02, 2025 12:49
[2025-09-02 13:16] LABS: Protein, Urine 30.1 mg/dL (1-14)
[2025-09-02 13:30] LABS: Triglycerides 91 mg/dL (< 150)
[2025-09-02 13:31] LABS: Cholesterol 92 mg/dL (< 200)
[2025-09-02 13:48] LABS: HDL Cholesterol 37 mg/dL (40-59)
[2025-09-02 13:49] LABS: Amphetamine Screen, Urine Neg (NEGATIVE); Barbiturate Scree,Urine Neg (NEGATIVE); Benzodiazephine Screen, Urine Neg (NEGATIVE); Cannabinoid Screen, Urine Neg (NEGATIVE); Cocaine Screen, Urine Neg (NEGATIVE); Opiate Scree,Urine Neg (NEGATIVE); Phencyclidine Screen, Urine Neg (NEGATIVE)
[2025-09-02] MEDS: HYDROcodone-ACET 5/325MG TAB PO PRN (15:48)
[2025-09-02] MEDS: WARFARIN SODIUM 1 MG TAB PO ONE (17:00)
[2025-09-02] MEDS ORDERED: AMIO200T33 PO (19:24)
[2025-09-02] MEDS ORDERED: FURO40TA4 PO (19:24)
[2025-09-03] VITALS (8 sets, daily range): BP systolic 103–139; BP diastolic 58–80; PULSE 55–72; RESP 16–18; TEMP 97.8–98.6; O2SAT 91–96
[2025-09-03 07:43] LABS: Hematocrit 41.8 % (41.0-53.0); Hemoglobin 14.0 g/dL (13.5-17.5); Mean Corpuscular Hemoglobin 32.6 pg (28.0-32.0); Mean Corpuscular Volume 97.5 fL (80.0-100.0); Nucleated Red Blood Cells % 0.1 %
[2025-09-03 08:00] LABS: Alanine Aminotransferase 15 U/L (7-40); Albumin 3.7 g/dL (3.2-4.8); Anion Gap 13 (5-15); BUN/Creatinine Ratio 13.1 (10.0-20.0); Carbon Dioxide 28 mmol/L (20-31); Chloride 102 mmol/L (98-107); Potassium 3.9 mmol/L (3.5-5.1); Sodium 143 mmol/L (136-145); Total Protein 7.4 g/dL (5.7-8.2)
[2025-09-03 08:03] LABS: INR 2.07 (0.9-1.15); Partial Thromboplastin Time 36.8 SEC (24.5-34.5); Prothrombin Time 20.4 sec (9.3-11.8)
[2025-09-03 08:08] LABS: Bilirubin, Total 1.3 mg/dL (0.2-1.0); Blood Urea Nitrogen 31 mg/dL (9-23); Calcium 8.5 mg/dL (8.7-10.4); Glucose 107 mg/dL (74-106)
[2025-09-03 08:12] LABS: Alkaline Phosphatase 83 U/L (46-116)
--- NOTE | 2025-09-03 14:14 | DVHPNRES ---
Progress Note Date Seen: Sep 03, 2025 Resident Creating Document: PENELOPE PAULINO RESIDENT Has the PT tested + for MRSA If YES, has PT been informed?: No Medical Necessity Reason Pt with a Central, PICC or Fol: No Subjective Review of Systems Timur Briseno is a 80-year-old male, with past medical history of CAD, type 2 diabetes mellitus and hypertension, presented to the ED with chief complain of 2 months of bilateral leg edema, warmth, erythema and pain, the pain is 6/10, throbbing irradiated diffusely in the legs up to the knees. On further questioning the patient reports that his takes care of his daily medications and he has not being compliant. The edema and erythema worsen, specially in the right leg, this prompted his visit to His PCP, Dr. Nobles, who recommends to visit the ED due to of foul odor and multiples ulcers around both legs. In the ED, initial work up showed: sodiym 146, potassium 3.4, BUN [address] of Lower extremity showed extensive surrounding skin thickening with subcutaneous adipose tissue edema likely compatible with cellulitis/fascitis. The patient was started on IV antibiotics. Patient was admitted for further evaluation and management. Past Surgical History: CABG (patient on warfarin due to [facility].) Smoke: quit >5 years ago. No alcohol or drugs. Lives with . Admission course: On 09/02/25, the patient was evaluated and examined at the bedside, patient reports feeling leg pain 4/10, more in the right leg. VS, labs and chart was reviewed. The patient is receiving Vancomycin 1gr IV and ceftriaxone 1gr IV. Bilateral lower extremity doppler showed: No sonographic evidence of a lower extremity arterial occlusion. Velocities as above. Plaque seen through bilateral lower extremities. Decreased left common femoral artery velocity. Diffusely decreased monophasic waveform of the left lower extremity suggestive of proximal stenosis. Consult with vascular surgery was placed. US abdomen showed: 1.2 cm echogenic mass in the right kidney. This could represent a nonobstructing stone versus angiomyolipoma. Today, I spoke with the patient's and update in regards he status. We will continue monitoring this patient. On 09/03/25, the the patient was re-evaluated and examined at the bedside, patient reports feeling leg pain 3/10, more in the right leg. VS, labs and chart was reviewed. The patient continues receiving Vancomycin 1gr IV and ceftriaxone 1gr IV. The patient has no new complaints. VS are stable. Creatinine has increase, small bolus of NS (250ml #1) was ordered to avoid fluid overload. Vascular surgery consult is pending. We will continue following up the progress of this patient. Review of Systems Eyes: No Pain, No Vision change, No Conjunctivae inflammation, No Eyelid inflammation, No Other, No Redness ENT: No Ear pain, No Ear discharge, No Nose pain, No Nose discharge, No Nose congestion, No Mouth pain, No Mouth swelling, No Throat pain, No Throat swelling, No Other Cardiovascular: No Chest Pain, No Palpitations, No Orthopnea, No Paroxysmal No Dyspnea, No Edema, No Lt Headedness, No Other Respiratory: No Cough, No Dry, No SOB with exertion, No Wheezing, No Hemoptysis, No Pleuritic Pain, No Sputum, No Other Gastrointestinal: No Nausea, No Vomiting, No Abdominal Pain, No Diarrhea, No Constipation, No Melena, No Hematochezia, No Other Genitourinary: No Dysuria, No Frequency, No Incontinence, No Hematuria, No Retention, No Other Musculoskeletal: bilateral leg pain, redness and swelling. More in the right. Skin: Right leg the patient reports pain has improved with pain medication. Coded Allergies: No known allergies. Objective vital signs Vital Sign Date Time Temp Pulse Resp B/P (MAP) Pulse Ox O2 Delivery O2 Flow Rate FiO2 09/03/25 09:51 139/80 09/03/25 09:50 79 09/03/25 08:52 97.9 16 92 97.9 09/03/25 07:30 Room Air* 0 21 Total Intake and Output 09/02/25 09/02/25 09/03/25 15:00 23:00 07:00 Intake Total 250 ml 440 ml 455 ml Output Total 275 ml Balance 250 ml 165 ml 455 ml medications Current Medications Medications Dose Ordered Sig/Reza Route Start Time Stop Time Status Last Admin Dose Admin Sodium Chloride 10 ml Q8HR IV 09/02/25 06:00 09/03/25 06:20 10 ML Vancomycin HCl 0 ml @ 0 mls/hr UD IV 09/02/25 02:00 Ceftriaxone Sodium 50 ml @ 100 mls/hr DAILY@09 IV 09/02/25 09:00 09/03/25 09:50 100 MLS/HR Diagnostic Test (Pha) 1 strip ACHS 09/02/25 07:00 09/03/25 10:34 1 STRIP Insulin Human Regular ACHS SC 09/02/25 07:00 09/03/25 10:39 3 UNITS Dextrose 50 ml UD PRN IV 09/02/25 02:00 Carvedilol 6.25 mg Q12HR PO 09/02/25 10:00 09/03/25 09:50 6.25 MG Nifedipine 60 mg DAILY PO 09/03/25 10:00 09/03/25 09:51 60 MG Vancomycin HCl 250 ml @ 250 mls/hr DAILY IV 09/02/25 10:10 UNV Acetaminophen/ Hydrocodone Bitart 1 tab Q8HPRN PRN PO 09/02/25 15:00 09/02/25 15:48 1 TAB Warfarin Sodium RX PROTOCOL PER PHARMACY PO 09/03/25 10:00 Atorvastatin Calcium 40 mg HS PO 09/03/25 22:00 Aspirin 81 mg DAILY PO 09/03/25 10:00 09/03/25 10:39 81 MG Examination General Appearance: Alert, oriented x3. Cooperative. Head Exam: Normal inspection Neck Exam: Normal inspection. Non-tender. Normal alignment Pulmonary/Respiratory: Chest non-tender. Clear bilateral breath sounds, no crackles, no wheezing. Cardiovascular/Chest: Regular rate and rhythm. No murmurs. No JVD. Peripheral Pulses: Pedal pulses are decreased in bilateral legs 2/5. Capillary refill 3 sec. Abdominal Exam: Abdomen is protuberant. Normal bowel sounds. Soft. Non tender. Lower extremities: Cold to touch. Right and left lower extremity skin has erythema and multiple open ulcers draining yellowish fluid. foul smell. Normal ROM. Tender to palpation. Right leg is more tender and warm compared with the left leg. Neuro/Mental Status: A&O x3. laboratory and microbiology Laboratory Tests 09/03/25 07:18 Test 09/03/25 07:18 Range/Units Serum Glucose 107 H 74-106 mg/dL Microbiology Date/Time Source Procedure Growth Status 09/02/25 18:00 Leg Gram Stain - Final Resulted 09/02/25 18:00 Leg Wound Culture - Preliminary Resulted 09/01/25 19:20 Blood Blood Culture - Preliminary NO GROWTH AFTER 24 HOURS OF INCUBATION. Resulted Problem List/Assessment/Plan Problem List/Assessment/Plan #Acute Right lower extremity cellulitis #Severe peripheral artery disease. Lower extremity CT: Extensive surrounding skin thickening with subcutaneous adipose tissue edema likely compatible with cellulitis/fascitis. Duplex scan lower extremity artery: Diffusely decreased monophasic waveform of the left lower extremity suggestive of proximal stenosis. Plaque seen through bilateral lower extremities. Decreased left common femoral artery velocity. IV antibiotics: Vancomycin 1gr and ceftriaxone 1 gr. daily Blood culture, urine culture Wound culture Wound consult Vascular surgery consult #Hypertensive urgency Monitor BP Echocardiogram reading is pending. 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 DVT prophylaxis: patient on warfarin Diet: Cardiac diet Goals of care discussed with the patient for more than 35 minutes. was called and report the status of the patient. Code Status: Full code PCP: Dr. Morales. Cardiology Dr. Marrero in [place] Case discussed with Dr. Gill Plan discussed with: Patient My Orders My Orders Orders - PENELOPE PAULINO RESIDENT Procedure Category Date Status Time * Dietary Consult CONS 09/02/25 Transmitted 16:25 Warfarin Per Rx PHA 09/03/25 In Process Protocol (Coumadin 10:00 Atorvastatin (Lipitor) PHA 09/03/25 In Process 22:00 Aspirin Tablet PHA 09/03/25 In Process 10:00 Dietary NOTICE 09/03/25 Transmitted Recommendations 10:20 Complete Blood Count LAB 09/04/25 Verified 04:00 Basic Metabolic Panel LAB 09/04/25 Verified 04:00 Dietary Evaluation Review Comments: 1) Consider CCHO 75gm + cardiac diet 2) Juevn 1 pk BID 3) Monitor PO intake, lab values, weight trend, and I/O Expected Outcomes/Goals: Wound to improve Fu 3-5 days Date of Service: Sep 03, 2025 Billing Provider: SRINATH MARIN MD Common Visit Codes: [id number] INP/OBS CARE(HIGH) PENELOPE PAULINO RESIDENT Sep 03, 2025 14:14 SRINATH MARIN MD Sep 03, 2025 22:06
[2025-09-03] MEDS: WARFARIN SODIUM 1 MG TAB PO ONE (17:14)
[2025-09-03] MEDS: SODIUM CHLORIDE 0.9% 250 ML IV ONE (18:34)
[2025-09-03] MEDS: ATORVASTATIN 20 MG TAB PO SCH (21:31)
[2025-09-04] VITALS (8 sets, daily range): BP systolic 104–117; BP diastolic 57–77; PULSE 58–67; RESP 16–20; TEMP 97.6–98.8; O2SAT 92–96
[2025-09-04 06:48] LABS: Hematocrit 40.0 % (41.0-53.0); Hemoglobin 13.4 g/dL (13.5-17.5); Mean Corpuscular Hemoglobin 32.6 pg (28.0-32.0); Mean Corpuscular Volume 97.2 fL (80.0-100.0); Nucleated Red Blood Cells % 0.1 %
[2025-09-04 06:59] LABS: INR 1.94 (0.9-1.15); Partial Thromboplastin Time 38.2 SEC (24.5-34.5); Prothrombin Time 19.3 sec (9.3-11.8)
[2025-09-04 07:02] LABS: Anion Gap 12 (5-15); Carbon Dioxide 28 mmol/L (20-31); Chloride 102 mmol/L (98-107); Potassium 4.0 mmol/L (3.5-5.1); Sodium 142 mmol/L (136-145)
[2025-09-04 07:08] LABS: BUN/Creatinine Ratio 13.5 (10.0-20.0)
[2025-09-04 07:10] LABS: Blood Urea Nitrogen 37 mg/dL (9-23); Calcium 8.6 mg/dL (8.7-10.4); Glucose 110 mg/dL (74-106)
--- NOTE | 2025-09-04 11:04 | DVHPNRES ---
Progress Note Date Seen: Sep 04, 2025 Resident Creating Document: CONRAD POPE RESIDENT Has the PT tested + for MRSA If YES, has PT been informed?: No Medical Necessity Reason Pt with a Central, PICC or Fol: No Subjective Review of Systems Timur Briseno is a 80-year-old male, with past medical history of CAD, type 2 diabetes mellitus and hypertension, presented to the ED with chief complain of 2 months of bilateral leg edema, warmth, erythema and pain, the pain is 6/10, throbbing irradiated diffusely in the legs up to the knees. On further questioning the patient reports that his takes care of his daily medications and he has not being compliant. The edema and erythema worsen, specially in the right leg, this prompted his visit to His PCP, Dr. Nobles, who recommends to visit the ED due to of foul odor and multiples ulcers around both legs. The patient was seen and examined on the bedside. He is alert oriented x3. Mentioned feeling better and no active complaint this time. Duplex Scan of the lower extremity demonstrated diffusely decreased monophasic waveform of the left lower extremity suggestive of proximal stenosis. Objective vital signs Vital Sign Date Time Temp Pulse Resp B/P (MAP) Pulse Ox O2 Delivery O2 Flow Rate FiO2 09/04/25 09:51 116/57 09/04/25 09:51 63 09/04/25 08:00 18 Room Air* 0 21 09/04/25 05:00 98.0 95 98.0 Total Intake and Output 09/03/25 09/03/25 09/04/25 15:00 23:00 07:00 Intake Total 50 ml 800 ml 850 ml Output Total 500 ml 400 ml Balance 50 ml 300 ml 450 ml medications Current Medications Medications Dose Ordered Sig/Reza Route Start Time Stop Time Status Last Admin Dose Admin Sodium Chloride 10 ml Q8HR IV 09/02/25 06:00 09/04/25 06:57 10 ML Vancomycin HCl 0 ml @ 0 mls/hr UD IV 09/02/25 02:00 Ceftriaxone Sodium 50 ml @ 100 mls/hr DAILY@09 IV 09/02/25 09:00 09/04/25 09:48 100 MLS/HR Diagnostic Test (Pha) 1 strip ACHS 09/02/25 07:00 09/04/25 06:57 1 STRIP Insulin Human Regular ACHS SC 09/02/25 07:00 09/03/25 21:38 2 UNITS Dextrose 50 ml UD PRN IV 09/02/25 02:00 Carvedilol 6.25 mg Q12HR PO 09/02/25 10:00 09/04/25 09:51 6.25 MG Nifedipine 60 mg DAILY PO 09/03/25 10:00 09/04/25 09:51 60 MG Vancomycin HCl 250 ml @ 250 mls/hr DAILY IV 09/02/25 10:10 UNV Acetaminophen/ Hydrocodone Bitart 1 tab Q8HPRN PRN PO 09/02/25 15:00 09/02/25 15:48 1 TAB Warfarin Sodium RX PROTOCOL PER PHARMACY PO 09/03/25 10:00 Atorvastatin Calcium 40 mg HS PO 09/03/25 22:00 09/03/25 21:31 40 MG Aspirin 81 mg DAILY PO 09/03/25 10:00 09/04/25 09:49 81 MG Examination Examination General Appearance: Alert, oriented x3. Cooperative. Head Exam: Normal inspection Neck Exam: Normal inspection. Non-tender. Normal alignment Pulmonary/Respiratory: Chest non-tender. Clear bilateral breath sounds, no crackles, no wheezing. Cardiovascular/Chest: Regular rate and rhythm. No murmurs. No JVD. Peripheral Pulses: Pedal pulses are decreased in bilateral legs 2/5. Capillary refill 3 sec. Abdominal Exam: Abdomen is protuberant. Normal bowel sounds. Soft. Non tender. Lower extremities: Cold to touch. Right and left lower extremity skin has erythema and multiple open ulcers draining yellowish fluid. foul smell. Normal ROM. Tender to palpation. Right leg is more tender and warm compared with the left leg. Neuro/Mental Status: Normal laboratory and microbiology Laboratory Tests 09/04/25 05:53 Test 09/04/25 05:53 Range/Units Serum Glucose 110 H 74-106 mg/dL Microbiology Date/Time Source Procedure Growth Status 09/02/25 18:00 Leg Gram Stain - Final Resulted 09/02/25 18:00 Leg Wound Culture - Preliminary Resulted 09/01/25 19:20 Blood Blood Culture - Preliminary NO GROWTH AFTER 48 HOURS OF INCUBATION. Resulted Labs and/or images reviewed: Labs reviewed by me, Image(s) reviewed by me Problem List/Assessment/Plan Problem List/Assessment/Plan Assessment and plan: #Acute Right lower extremity cellulitis #Severe peripheral artery disease. - Lower extremity CT: Extensive surrounding skin thickening with subcutaneous adipose tissue edema likely compatible with cellulitis/fascitis. - Duplex scan lower extremity artery: Diffusely decreased monophasic waveform of the left lower extremity suggestive of proximal stenosis. Plaque seen through bilateral lower extremities. Decreased left common femoral artery velocity. - IV antibiotics: Vancomycin 1gr and ceftriaxone 1 gr. daily - Blood Culture showed no growth in 24 hours of incubation, preliminary wound culture demonstrated gm positive/negative rods, cocci in cluster - Pending vascular surgery consult - Consulted health social work professor to arrange home health for wound care - Continue aspirin 81 mg p.o. 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 Code Status: Full code Case discussed with Dr. Marin Plan discussed with: Patient, Other (RN) Dietary Evaluation Review Comments: 1) Consider CCHO 75gm + cardiac diet 2) Juevn 1 pk BID 3) Monitor PO intake, lab values, weight trend, and I/O Expected Outcomes/Goals: Wound to improve Fu 3-5 days Date of Service: Sep 04, 2025 Billing Provider: SRINATH MARIN MD Common Visit Codes: [id number] INP/OBS CARE(HIGH) CONRAD POPE RESIDENT Sep 04, 2025 11:04 SRINATH MARIN MD Sep 04, 2025 17:39
[2025-09-04 16:18] LABS: Chloride 104 mmol/L (98-107); Potassium 3.8 mmol/L (3.5-5.1); Sodium 141 mmol/L (136-145)
[2025-09-04 16:19] LABS: Anion Gap 10 (5-15); Carbon Dioxide 27 mmol/L (20-31)
[2025-09-04 16:21] LABS: Calcium 8.2 mg/dL (8.7-10.4)
[2025-09-04 16:24] LABS: BUN/Creatinine Ratio 12.6 (10.0-20.0); Blood Urea Nitrogen 36 mg/dL (9-23); Glucose 160 mg/dL (74-106)
[2025-09-04] MEDS: WARFARIN SODIUM 2 MG TAB PO ONE (17:25)
[2025-09-04] MEDS ORDERED: FUROSEMIDE 40 MG/4 ML VIAL IV ONE (17:45)
[2025-09-04] MEDS: FUROSEMIDE 40 MG/4 ML VIAL IV ONE (21:26)
[2025-09-05] MEDS: guaiFENesin-DM 100/10mg/5ml SYR PO PRN (01:58)
[2025-09-05 04:52] VITALS: BP 118/80; PULSE 59; RESP 18; TEMP 97.6; O2SAT 95
[2025-09-05 06:18] LABS: Hematocrit 39.2 % (41.0-53.0); Hemoglobin 13.3 g/dL (13.5-17.5); Mean Corpuscular Hemoglobin 32.9 pg (28.0-32.0); Mean Corpuscular Volume 96.8 fL (80.0-100.0); Nucleated Red Blood Cells % 0.1 %
[2025-09-05 06:28] LABS: INR 2.08 (0.9-1.15); Partial Thromboplastin Time 37.8 SEC (24.5-34.5); Prothrombin Time 20.5 sec (9.3-11.8)
[2025-09-05 07:00] VITALS: BP 125/87; PULSE 61; RESP 22; TEMP 97.4; O2SAT 86
[2025-09-05 09:28] LABS: Chloride 102 mmol/L (98-107); Potassium 4.1 mmol/L (3.5-5.1); Sodium 141 mmol/L (136-145)
[2025-09-05 09:29] LABS: Anion Gap 15 (5-15); Carbon Dioxide 24 mmol/L (20-31)
[2025-09-05 09:34] LABS: BUN/Creatinine Ratio 13.9 (10.0-20.0)
[2025-09-05 09:41] LABS: Blood Urea Nitrogen 43 mg/dL (9-23); Calcium 8.6 mg/dL (8.7-10.4); Glucose 129 mg/dL (74-106)
[2025-09-05 12:38] VITALS: BP 128/60; PULSE 65; RESP 23; TEMP 98.3; O2SAT 89
[2025-09-05] MEDS ORDERED: CEPH500C PO (13:55)
--- NOTE | 2025-09-05 14:07 | DVHSR ---
APPROVED REPORT EXAM: Two-dimensional and M-mode echocardiogram with Doppler and color Doppler. Blood Pressure: 176/94 mmHg INDICATION Chest Pain Surgery/Intervention Valve Replacement: Type: AV RISK FACTORS Height: 5'10", Weight: 185 DIMENSIONS LVDd5.1 (3.8-5.7cm)LA (2D)4.4 (1.9-4.0cm)Aortic Root (2.0-3.7cm) LVDs4.2 (2.5-4.0cm)LA (MM) (1.9-4.0cm)Aortic Cusp Exc1.7 (1.5-2.0cm) EF (%) 34.0 (55-70%)Rt. Atrium6.9 (1.9-4.0cm)Asc. Aorta3.7 cm IVSd1.2 (0.7-1.1cm)RV (D)5.7 (1.8-2.4cm) PWd1.4 (0.7-1.1cm) Mitral Valve MitralMitral Stenosis E wave0.89m/sMV Mean GR.mmHg A wave0.74m/sMV Peak GR.mmHg E/A ratio1.22D MVAcm2 DECEL [id number] 1/2 Timems Aortic Valve Aortic ValveAortic Stenosis V10.75m/Trina Mean GR.17mmHg V23.01m/Trina Peak GR.37mmHg LVOT Diameter2.4 (1.8-2.4cm)Doppler AVA1.13cm2 AI P 1/2 [id number] Pulmonic Valve V20.68m/s Tricuspid Valve TR Velocity2.70m/s [id number] Conclusion lvef 30% RV enlargeemtn and dysfunction s/p AVR, mean gradient of 16 mmhg across valve severe tricuspid regurg mild mitral regurg biatrial enlargement moderate pulmonic regurg
--- NOTE | 2025-09-05 14:47 | DVHDSRES ---
Discharge Summary Date of Admission Resident Creating Document: PENELOPE PAULINO RESIDENT Sep 02, 2025 at 01:48 Date of Discharge: Sep 05, 2025 Admitting Diagnosis Right leg cellulitis Hypertensive urgency MARILY on CKD Stage 3b Diabetes with hyperglycemia Wounds: Multiple bilateral lower leg wounds. Labs/Diagnostic Data: Laboratory Results Test 09/05/25 12:09 09/05/25 04:51 09/03/25 07:18 09/02/25 10:14 POC Glucose 150 mg/dl (70-106) White Blood Count 5.3 10^3/uL (4.4-10.8) Red Blood Count 4.05 10^6/uL (4.5-5.90) Hemoglobin 13.3 g/dL (13.5-17.5) Hematocrit 39.2 % (41.0-53.0) Mean Corpuscular Volume 96.8 fL (80.0-100.0) Mean Corpuscular Hemoglobin 32.9 pg (28.0-32.0) Mean Corpuscular Hemoglobin Concent 34.0 g/dL (32.0-36.0) Red Cell Distribution Width 17.9 % (11.8-14.3) Platelet Count 180 10^3/uL (140-450) Mean Platelet Volume 9.0 fL (6.9-10.8) Neutrophils (%) (Auto) 73.9 % (37.0-80.0) Lymphocytes (%) (Auto) 15.6 % (10.0-50.0) Monocytes (%) (Auto) 8.8 % (0.0-12.0) Eosinophils (%) (Auto) 1.2 % (0.0-7.0) Basophils (%) (Auto) 0.5 % (0.0-2.0) Neutrophils # (Auto) 3.9 10 ^3/uL (1.6-8.6) Lymphocytes # (Auto) 0.8 10 ^3/uL (0.4-5.4) Monocytes # (Auto) 0.5 10 ^3/uL (0-1.3) Eosinophils # (Auto) 0.1 10 ^3/uL (0-0.8) Basophils # (Auto) 0 10 ^3/uL (0-0.2) Nucleated Red Blood Cells 0.1 % Prothrombin Time 20.5 sec (9.3-11.8) Prothrombin Time INR 2.08 (0.9-1.15) Activated Partial Thromboplast Time 37.8 SEC (24.5-34.5) Sodium Level 141 mmol/L (136-145) Potassium Level 4.1 mmol/L (3.5-5.1) Chloride Level 102 mmol/L (98-107) Carbon Dioxide Level 24 mmol/L (20-31) Anion Gap 15 (5-15) Blood Urea Nitrogen 43 mg/dL (9-23) Creatinine 3.10 mg/dL (0.700-1.30) Glomerular Filtration Rate Calc 20 mL/min (>90) BUN/Creatinine Ratio 13.9 (10.0-20.0) Serum Glucose 129 mg/dL (74-106) Calcium Level 8.6 mg/dL (8.7-10.4) Random Vancomycin Level 9.6 ug/mL (5-10) Total Bilirubin 1.3 mg/dL (0.2-1.0) Aspartate Amino Transferase (AST) 21 U/L (13-40) Alanine Aminotransferase (ALT) 15 U/L (7-40) Alkaline Phosphatase 83 U/L (46-116) Total Protein 7.4 g/dL (5.7-8.2) Albumin 3.7 g/dL (3.2-4.8) Hemoglobin A1c 7.1 % A1C (<5.7) Triglycerides Level 91 mg/dL (< 150) Cholesterol Level 92 mg/dL (< 200) LDL Cholesterol 40 mg/dL (< 100) HDL Cholesterol 37 mg/dL (40-59) Test 09/02/25 08:25 09/02/25 02:34 09/01/25 19:20 Urine Color Light-yellow (Yellow) Urine Clarity Clear (Clear) Urine pH 7.0 (5.0-9.0) Urine Specific [place] 1.007 (1.001-1.035) Urine Protein Negative (Negative) Urine Ketones Negative (Negative) Urine Blood Negative /uL (Negative) Urine Nitrite Negative (Negative) Urine Bilirubin Negative (Negative) Urine Urobilinogen 2 mg/dL (Negative) Urine Leukocyte Esterase Negative /uL (Negative) Urine RBC 1 /hpf (0 - 3) Urine Microscopic WBC < 1 /HPF (0-3) Urine Squamous Epithelial Cells None seen /hpf (<5) Urine Bacteria None seen /hpf (None Seen) Urine Osmolality 285 mOsm/kg Urine Creatinine 18.84 mg/dL (30.0-125.0) Urine Protein/Creatinine Ratio 1.60 Urine Sodium 103 mmol/L (40-220) Urine Glucose Normal mg/dL (Normal) Urine Total Protein 30.1 mg/dL (1-14) Urine Opiates Screen Neg (NEGATIVE) Urine Fentanyl Screen Neg (NEGATIVE) Urine Barbiturates Screen Neg (NEGATIVE) Urine Phencyclidine Screen Neg (NEGATIVE) Urine Amphetamines Screen Neg (NEGATIVE) Urine Benzodiazepines Screen Neg (NEGATIVE) Urine Cocaine Screen Neg (NEGATIVE) Urine Cannabinoids Screen Neg (NEGATIVE) Erythrocyte Sedimentation Rate 6 mm/hr (0-20) Lactic Acid Level 1.7 mmol/L (0.4-2.0) Direct Bilirubin 1.1 mg/dL (<0.3) Creatine Kinase 130 U/L (46-171) C-Reactive Protein High Sensitivity 2.78 mg/dL (<1.0) Troponin I High Sensitivity 46 ng/L (</=54) B-Type Natriuretic Peptide 4935.18 pg/mL (0-100) Other Laboratory Tests 09/05/25 04:51 Brief Hx & Hospital Course: Timur Briseno is a 80-year-old male, with past medical history of CAD, type 2 diabetes mellitus and hypertension, presented to the ED with chief complain of 2 months of bilateral leg edema, warmth, erythema and pain, the pain is 6/10, throbbing irradiated diffusely in the legs up to the knees. On further questioning the patient reports that his takes care of his daily medications and he has not being compliant. The edema and erythema worsen, specially in the right leg, this prompted his visit to His PCP, Dr. Nobles, who recommends to visit the ED due to of foul odor and multiples ulcers around both legs. In the ED, initial work up showed: sodiym 146, potassium 3.4, BUN [address] of Lower extremity showed extensive surrounding skin thickening with subcutaneous adipose tissue edema likely compatible with cellulitis/fascitis. The patient was started on IV antibiotics. Patient was admitted for further evaluation and management. Past Surgical History: CABG (patient on warfarin due to [facility].) Smoke: quit >5 years ago. No alcohol or drugs. Lives with . Admission course: On 09/02/25, the patient was evaluated and examined at the bedside, patient reports feeling leg pain 4/10, more in the right leg. VS, labs and chart was reviewed. The patient is receiving Vancomycin 1gr IV and ceftriaxone 1gr IV. Bilateral lower extremity doppler showed: No sonographic evidence of a lower extremity arterial occlusion. Velocities as above. Plaque seen through bilateral lower extremities. Decreased left common femoral artery velocity. Diffusely decreased monophasic waveform of the left lower extremity suggestive of proximal stenosis. Consult with vascular surgery was placed. US abdomen showed: 1.2 cm echogenic mass in the right kidney. This could represent a nonobstructing stone versus angiomyolipoma. Today, I spoke with the patient's and update in regards he status. We will continue monitoring this patient. On 09/03/25, the the patient was re-evaluated and examined at the bedside, patient reports feeling leg pain 3/10, more in the right leg. VS, labs and chart was reviewed. The patient continues receiving Vancomycin 1gr IV and ceftriaxone 1gr IV. The patient has no new complaints. VS are stable. Creatinine has increase, small bolus of NS (250ml #1) was ordered to avoid fluid overload. Vascular surgery consult is pending. We will continue following up the progress of this patient. On 09/04/25: patient was seen and examined on the bedside. He is alert oriented x3. Mentioned feeling better and no active complaint this time. Duplex Scan of the lower extremity demonstrated diffusely decreased monophasic waveform of the left lower extremity suggestive of proximal stenosis. On 09/05/25, the patient was examined at bedside, VS, labs and chart was reviewed. The patient reports feeling better today. No fever, pain is well control 0/10 today. The patient will be discharge home with Ketflex 500mg po QID for 7 days. The patient will f/u with Dr. Marrero as an out patient. Review of Systems Eyes: No Pain, No Vision change, No Conjunctivae inflammation, No Eyelid inflammation, No Other, No Redness ENT: No Ear pain, No Ear discharge, No Nose pain, No Nose discharge, No Nose congestion, No Mouth pain, No Mouth swelling, No Throat pain, No Throat swelling, No Other Cardiovascular: No Chest Pain, No Palpitations, No Orthopnea, No Paroxysmal No Dyspnea, No Edema, No Lt Headedness, No Other Respiratory: No Cough, No Dry, No SOB with exertion, No Wheezing, No Hemoptysis, No Pleuritic Pain, No Sputum, No Other Gastrointestinal: No Nausea, No Vomiting, No Abdominal Pain, No Diarrhea, No Constipation, No Melena, No Hematochezia, No Other Genitourinary: No Dysuria, No Frequency, No Incontinence, No Hematuria, No Retention, No Other Musculoskeletal: bilateral leg pain, redness and swelling. More in the right. Skin: Right leg the patient reports pain has improved to 0/10 today with pain medication. Coded Allergies: No known allergies. Physical Exam General Appearance: Alert, oriented x3. Cooperative. Non in distress Head Exam: Normal inspection Neck Exam: Normal inspection. Non-tender. Normal alignment Pulmonary/Respiratory: Chest non-tender. Clear bilateral breath sounds, no crackles, no wheezing. Cardiovascular/Chest: Regular rate and rhythm. No murmurs. No JVD. Peripheral Pulses: Pedal pulses are decreased in bilateral legs 2/5. Capillary refill 3 sec. Abdominal Exam: Abdomen is protuberant. Normal bowel sounds. Soft. Non tender. Lower extremities: ROM preserved, sensitivity and strength preserved. pedal pulses disminish 3/5. Capillary refill <2 secs Right and left lower extremity skin has erythema and multiple open ulcers that are improving with wound care. Tender to palpation. Right leg is more tender and warm compared with the left leg. Neuro/Mental Status: A&O x3. Consults/Reason for consult Vascular surgery: peripheral artery disease. Wound consult, for wound care Operations or Procedures PROCEDURE(s): CXR1 - CHEST XRAY 1 VIEW REASON: sob ORDER NUMBER(s): [id number], ACCESSION NUMBER(s): [id number] CHEST RADIOGRAPH Indication: sob Technique: Single frontal view of the chest was obtained Comparison: None FINDINGS: Lines and Tubes: None Lungs: No focal consolidation. Pleura: No effusion. No pneumothorax. Cardiomediastinal contours: Unremarkable Bones: No acute osseous abnormality. IMPRESSION: 1. No acute cardiopulmonary disease. EDURE(s): BLEAD - BiLat Low Ext Art Duplex REASON: RLE cellulitis and wheeping edema ORDER NUMBER(s): [id number], ACCESSION NUMBER(s): [id number] EXAM: US BILAT LOW EXT ART DUPLEX INDICATION: Cellulitis TECHNIQUE: Grayscale and color Doppler sonographic imaging evaluation of the right and left lower extremity arterial system was performed COMPARISON: None available at the time of dictation. FINDINGS: RIGHT LOWER EXTREMITY ARTERIES: Common femoral artery: 13.1 cm/s, triphasic Deep femoral artery: 69 cm/s, triphasic Proximal femoral artery: 91 cm/s, triphasic Mid femoral artery: 84 cm/s, triphasic Distal femoral artery: 86 cm/s, triphasic Popliteal artery: 64 cm/s, biphasic Posterior tibial artery: Nonvisualized Dorsalis pedis artery: 16 cm/s, biphasic LEFT LOWER EXTREMITY ARTERIES: Common femoral artery: 65 cm/s, monophasic Deep femoral artery: 76 cm/s, monophasic Proximal femoral artery: 21 cm/s, monophasic Mid femoral artery: 70 cm/s, monophasic Distal femoral artery: 20 cm/s, monophasic Popliteal artery: 17 cm/s, monophasic Posterior tibial artery: Not well visualized Dorsalis pedis artery: Not well visualized REFERENCE VALUES: Normal velocity ranges (in cm/sec) are as follows: METEOROLOGIST LIAISON 95-140, SFA 75-105, popliteal 54-84, tibial 41-81 cm/sec. Stenosis categories: 1.5-2.0 x normal velocity = 30-49%, 2.0-4.0 x normal velocity = 50- 75%, >4.0 x normal velocity = >75%. IMPRESSION: 1. No sonographic evidence of a lower extremity arterial occlusion. Velocities as above. 2. Plaque seen through bilateral lower extremities. 3. Decreased left common femoral artery velocity. 4. Diffusely decreased monophasic waveform of the left lower extremity suggestive of proximal stenosis. EDURE(s): RLEX - LOWER EXTREMITY NON JOINT RIGH REASON: RLE cellulitis & wheeping edema ORDER NUMBER(s): [id number], ACCESSION NUMBER(s): [id number] EXAM: CT LOWER EXTREMITY NON JOINT RIGH INDICATION: RLE cellulitis wheeping edema TECHNIQUE: Axial images of right lower extremity have been obtained along with coronal and sagittal reformatted images. All CT scans at this facility use dose modulation, iterative reconstruction, and/or weight based dosing when appropriate to reduce radiation dose to as low as reasonably achievable. COMPARISON: None FINDINGS: BONES: No CT evidence of an acute fracture or aggressive osseous lesion. no abnormal periosteal reaction osseous erosion or areas of sclerosis MUSCLES: No abnormal attenuation. JOINT SPACES: No joint effusion. TENDONS/LIGAMENTS: Intact. OTHER: Extensive surrounding skin thickening with subcutaneous adipose tissue edema IMPRESSION: 1. No CT evidence of an acute fracture or aggressive osseous lesion. 2. No abnormal periosteal reaction, osseous erosion or areas of sclerosis. 3. Extensive surrounding skin thickening with subcutaneous adipose tissue edema likely compatible with cellulitis/fasciitis. 4. No drainable fluid collection EDURE(s): KIDUS - KIDNEY REASON: MARILY ORDER NUMBER(s): [id number], ACCESSION NUMBER(s): [id number] INDICATION: MARILY. TECHNIQUE: Multiple real-time sonographic images of the kidneys and bladder were obtained. COMPARISON: None FINDINGS: The right kidney measures 8.8 cm in length, which is normal in size. There is normal echogenicity of the right kidney. No hydronephrosis. There is a 1.2 cm echogenic mass in the right kidney. There is no shadowing. Increased echogenicity of the renal cortex. The left kidney measures 8.7 cm in length, which is normal in size. There is normal echogenicity of the left kidney. No hydronephrosis. Increased echogenicity of the renal cortex. No large intraluminal masses are seen in the bladder. Prior to voiding the bladder volume measures volume 180.2 cc. IMPRESSION: 1. Bilateral medical renal disease. 2. 1.2 cm echogenic mass in the right kidney. This could represent a nonobstructing stone versus angiomyolipoma. ATED BY: MONSERRAT EMANUEL MD DICTATED DATE/TIME: 09/02/25 0808 Condition at Discharge: Stable Final Diagnosis/Problems List Right leg cellulitis. Periferal artery disease Hypertensive crisis DM2 with hyperglycemia MARILY on CKD stage 3b Possible Renal Angiomyolipoma VS Nephrolithiasis Discharge Disposition: Home SNF Discharge Will this Physician continue t: No Discharge Instruct/Medications Diet: Cardiac 2g Na,low cholest Activity: No Restrictions, As Tolerated Follow Up/Referral: F/U with PCP Dr. Marrero F/U with PT Medications: Ketflex 500mg po QID x 7 days Continue with home medication Scheduled Amiodarone Hcl (Amiodarone Hcl), 200 MG PO DAILY, (Reported) Carvedilol (Carvedilol), 1 TAB PO BID, (Reported) Cephalexin Monohydrate (Cephalexin), 1 CAP PO QID Furosemide (Furosemide), 40 TAB PO DAILY, (Reported) Metformin Hydrochloride (Metformin Hcl), 1 TAB PO BID, (Reported) Warfarin Sodium (Warfarin Sodium), 1 TAB PO DAILY, (Reported) Discharge Statement: "Patient was advised to return to the ER or call 911 if any headaches, dizziness, shortness of breath, chest pain, abdominal pain, bleeding, fevers, or worsening of medical condition. Patient was counseled about treatment plan, medications, possible side effects, patientverbalized understanding. All questions were answered to the best of my ability. This discharge took greater then 30 minutes in planning, reviewing documentation, counseling the patient, and discussing with other team members." Discharge Care Plan Instructions Take Rx medications, Notify MD of any issues, Keep list of meds w/ you, Do not drink ETOH/smoke, Call 911 in an emergency, F/U w/ PCP ASSESSMENT ASSESSMENT Assessment Right leg cellulitis. Periferal artery disease Hypertensive crisis MARILY on CKD Date of Service: Sep 05, 2025 Billing Provider: SRINATH MARIN MD Common Visit Codes: 45334-BFD/OBS DISCH DAY >30min PENELOPE PAULINO RESIDENT Sep 05, 2025 14:47 SRINATH MARIN MD Sep 05, 2025 23:32
[2025-09-05] MEDS ORDERED: WARFARIN SODIUM 1 MG TAB PO ONE (17:00)
== END 2025-09-05 15:39 | disposition home health service (06) | DRG 299 ==
LOC: ER 17:37 → OVERFLOW 09-02 01:48 → CENTRAL 09-02 05:30
PROVIDERS: ADMIT Internal Medicine; ATTEND Internal Medicine
DX: E11.51 Type 2 diabetes mellitus with diabetic peripheral angiopathy without gangrene (principal); I50.43 Acute on chronic combined systolic (congestive) and diastolic (congestive) heart failure; N17.0 Acute kidney failure with tubular necrosis; I13.0 Hypertensive heart and chronic kidney disease with heart failure and stage 1 through stage 4 chronic kidney disease, or unspecified chronic kidney disease; L03.115 Cellulitis of right lower limb; L97.929 Non-pressure chronic ulcer of unspecified part of left lower leg with unspecified severity; L97.919 Non-pressure chronic ulcer of unspecified part of right lower leg with unspecified severity; I16.0 Hypertensive urgency; I25.10 Atherosclerotic heart disease of native coronary artery without angina pectoris; D17.71 Benign lipomatous neoplasm of kidney; N20.0 Calculus of kidney; E11.22 Type 2 diabetes mellitus with diabetic chronic kidney disease; E11.65 Type 2 diabetes mellitus with hyperglycemia; E11.622 Type 2 diabetes mellitus with other skin ulcer; N18.32 Chronic kidney disease, stage 3b; Z95.1 Presence of aortocoronary bypass graft; Z91.199 Patient's noncompliance with other medical treatment and regimen due to unspecified reason; Z95.2 Presence of prosthetic heart valve; Z79.82 Long term (current) use of aspirin
CPT/HCPCS: 36415; 71045; 73700; 76775; 80048; 80053; 80061; 80076; 80202; 80307; 81001; 82550; 82565; 82570; 82962; 83036; 83605; 83880; 83935; 84156; 84300; 84484; 85025; 85610; 85652; 85730; 86141; 87040; 87077; 87081; 87186; 87205; 93306; 93925; 96374; G0378; J1815